=== PATIENT | female | born 1985 | race Two or more races ===

== ENCOUNTER 2020-07-09 19:54 | Emergency (ER) | payer OTHER ==
[2020-07-09] MEDS ORDERED: NAPROSYN500 MG PO (21:35)
== END 2020-07-09 21:50 | disposition home or self-care (01) ==
LOC: ER1 19:54 → EDBD 19:54 → ER1 21:50
DX: S40.021A Contusion of right upper arm, initial encounter (principal); W20.8XXA Other cause of strike by thrown, projected or falling object, initial encounter; Y92.009 Unspecified place in unspecified non-institutional (private) residence as the place of occurrence of the external cause
CPT/HCPCS: 73060; 96372; 99283; J1885